=== PATIENT | female | born 1970 | race Caucasian/White ===

== ENCOUNTER → 2017-03-01 | Outpatient (CLI) | payer BC ==
--- NOTE | 2017-03-02 11:41 | MM ---
Reason for exam: screening (asymptomatic). Last mammogram was performed 1 year ago. History: Patient had first child at age 40. Family history of breast cancer in maternal aunt at age 50. Took hormonal contraceptives for 17 years beginning at age 18. Physical Findings: A clinical breast exam by your physician is recommended on an annual basis and results should be correlated with mammographic findings. MG 3D Screening Mammo W/Cad Bilateral CC and MLO view(s) were taken. Prior study comparison: February 29, 2016, bilateral MG 3d screening mammo w/cad. January 04, 2015, bilateral MG screening mammo w CAD. January 01, 2014, bilateral digital screening mammo w/CAD. The breast tissue is heterogeneously dense. This may lower the sensitivity of mammography. ASSESSMENT: Negative, BI-RAD 1 RECOMMENDATION: Routine screening mammogram of both breasts in 1 year.
== END | disposition home or self-care (01) ==
LOC: RADMAMWWP 16:46
PROVIDERS: ATTEND Family Medicine
DX: Z12.31 Encounter for screening mammogram for malignant neoplasm of breast (principal); Z80.3 Family history of malignant neoplasm of breast
CPT/HCPCS: 77063; G0202

== ENCOUNTER → 2017-11-15 | Outpatient (CLI) | payer BC ==
[2017-11-15 09:36] LABS: Basophils % (A) 0 %; Eosinophils # (A) 0.1 k/uL (0-0.7); Eosinophils % (A) 1 %; Lymphocytes # (A) 1.8 k/uL (1.0-4.8); Lymphocytes % (A) 20 %; MCH 30.4 pg (25.0-35.0); MCHC 32.5 g/dL (31.0-37.0); MCV 93.5 fL (80.0-100.0); Mean Platelet Volume 7.2; Monocytes # (A) 0.6 k/uL (0-1.0); Monocytes % (A) 7 %; Neutrophils # (A) 6.1 k/uL (1.3-7.7); Neutrophils % (A) 69 %; Platelet Count 278 k/uL (150-450); RDW 12.1 % (11.5-15.5); WBC 8.8 k/uL (3.8-10.6)
[2017-11-15 09:51] LABS: ALT 28 U/L (9-52); AST 24 U/L (14-36); Albumin 4.4 g/dL (3.5-5.0); Alkaline Phosphatase 65 U/L (38-126); Anion Gap 9 mmol/L; Blood Urea Nitrogen 16 mg/dL (7-17); Calcium 9.5 mg/dL (8.4-10.2); Carbon Dioxide 25 mmol/L (22-30); Chloride 105 mmol/L (98-107); Cholesterol 207 mg/dL (<200); Glucose 102 mg/dL (74-99); HDL Cholesterol 88 mg/dL (40-60); LDL Cholesterol,Calculated 106 mg/dL (0-99); Potassium 4.3 mmol/L (3.5-5.1); Sodium 139 mmol/L (137-145); Total Bilirubin 0.7 mg/dL (0.2-1.3); Total Protein 7.3 g/dL (6.3-8.2); Triglycerides 64 mg/dL (<150)
[2017-11-15 10:07] LABS: T4, Free (Free Thyroxine) 1.03 ng/dL (0.78-2.19)
== END | disposition home or self-care (01) ==
LOC: LABWHC1 08:56
PROVIDERS: ATTEND Family Medicine
DX: E04.1 Nontoxic single thyroid nodule (principal); F34.1 Dysthymic disorder; E78.5 Hyperlipidemia, unspecified
CPT/HCPCS: 36415; 80053; 80061; 82306; 82607; 82626; 83001; 83002; 84439; 84443; 85025

== ENCOUNTER → 2018-04-26 | Outpatient (CLI) | payer BC ==
--- NOTE | 2018-04-30 12:10 | MM ---
Reason for exam: screening (asymptomatic). Last mammogram was performed 1 year and 2 months ago. History: Patient had first child at age 40. Family history of breast cancer in maternal aunt at age 50. Took hormonal contraceptives for 17 years beginning at age 18. Physical Findings: A clinical breast exam by your physician is recommended on an annual basis and results should be correlated with mammographic findings. MG 3D Screening Mammo W/Cad Bilateral CC and MLO view(s) were taken. Prior study comparison: March 01, 2017, bilateral MG 3d screening mammo w/cad. February 29, 2016, bilateral MG 3d screening mammo w/cad. The breast tissue is extremely dense which could obscure a lesion on mammography. No significant changes when compared with prior studies. ASSESSMENT: Benign, BI-RAD 2 RECOMMENDATION: Routine screening mammogram of both breasts in 1 year.
== END | disposition home or self-care (01) ==
LOC: RADMAMWWP 07:16
PROVIDERS: ATTEND Family Medicine
DX: Z12.31 Encounter for screening mammogram for malignant neoplasm of breast (principal)
CPT/HCPCS: 77063; 77067

== ENCOUNTER → 2018-12-19 | Outpatient (CLI) | payer BC ==
[2018-12-19 08:10] LABS: Basophils # (A) 0.1 k/uL (0-0.2); Basophils % (A) 1 %; Eosinophils # (A) 0.1 k/uL (0-0.7); Eosinophils % (A) 1 %; HCT 42.9 % (34.0-46.0); HGB 13.6 gm/dL (11.4-16.0); Lymphocytes # (A) 1.5 k/uL (1.0-4.8); Lymphocytes % (A) 19 %; MCH 30.7 pg (25.0-35.0); MCHC 31.7 g/dL (31.0-37.0); Mean Platelet Volume 6.8; Monocytes # (A) 0.5 k/uL (0-1.0); Monocytes % (A) 7 %; Neutrophils # (A) 5.4 k/uL (1.3-7.7); Neutrophils % (A) 69 %; Platelet Count 296 k/uL (150-450); RBC 4.43 m/uL (3.80-5.40); RDW 12.2 % (11.5-15.5); WBC 7.8 k/uL (3.8-10.6)
[2018-12-19 08:52] LABS: Appearance,Urine Clear (Clear); Bilirubin,Urine Negative (Negative); Blood,Urine Negative (Negative); Color,Urine Yellow; Glucose,Urine (UA) Negative (Negative); Ketones,Urine Negative (Negative); Leukocyte Esterase,Urine Negative (Negative); Nitrite,Urine Negative (Negative); PH, Urine 7.5 (5.0-8.0); Protein,Urine Negative (Negative); Specific Gravity,Urine 1.019 (1.001-1.035); Urobilinogen,Urine <2.0 mg/dL (<2.0)
[2018-12-19 20:12] LABS: Vitamin D 25 Hydroxy 57.3 ng/mL (30.0-100.0)
[2018-12-19 20:47] LABS: Albumin 4.2 g/dL (3.80-4.90); Albumin/Globulin Ratio 1.91 (1.60-3.17); Anion Gap 8.3 mmol/L (4.00-12.00); Calcium 9.3 mg/dL (8.7-10.3); Carbon Dioxide 26.7 mmol/L (21.6-31.8); Globulin 2.2 g/dL (1.6-3.3); LDL Cholesterol,Calculated 104.8 mg/dL (0.0-131.0); Potassium 4.8 mmol/L (3.5-5.5); Total Bilirubin 0.5 mg/dL (0.2-1.2); Total Protein 6.4 g/dL (6.2-8.2); VLDL Calculation 10.2 mg/dL (5.00-40.00)
[2018-12-19 21:16] LABS: Hemoglobin A1C 5.5 % (4.0-6.0)
== END | disposition home or self-care (01) ==
LOC: LABWHC1 07:20
PROVIDERS: ATTEND Family Medicine
DX: Z00.00 Encounter for general adult medical examination without abnormal findings (principal); E78.5 Hyperlipidemia, unspecified; I73.00 Raynaud's syndrome without gangrene; G47.00 Insomnia, unspecified
CPT/HCPCS: 36415; 80053; 80061; 81003; 82306; 82607; 83036; 84443; 85025

== ENCOUNTER → 2019-04-30 | Outpatient (CLI) | payer BC ==
--- NOTE | 2019-05-01 15:09 | MM ---
Reason for exam: screening (asymptomatic). Last mammogram was performed 1 year ago. History: Patient had first child at age 40. Family history of breast cancer in maternal aunt at age 50. Took hormonal contraceptives for 17 years beginning at age 18. Physical Findings: A clinical breast exam by your physician is recommended on an annual basis and results should be correlated with mammographic findings. MG 3D Screening Mammo W/Cad Bilateral CC and MLO view(s) were taken. Prior study comparison: April 26, 2018, bilateral MG 3d screening mammo w/cad. March 01, 2017, bilateral MG 3d screening mammo w/cad. The breast tissue is extremely dense which could obscure a lesion on mammography. No significant changes when compared with prior studies. ASSESSMENT: Benign, BI-RAD 2 RECOMMENDATION: Routine screening mammogram of both breasts in 1 year.
== END | disposition home or self-care (01) ==
LOC: RADMAMWWP 15:17
PROVIDERS: ATTEND Family Medicine
DX: Z12.31 Encounter for screening mammogram for malignant neoplasm of breast (principal)
CPT/HCPCS: 77063; 77067

== ENCOUNTER → 2020-04-20 | Outpatient (CLI) | payer BC ==
[2020-04-20 09:08] LABS: Basophils # (A) 0.1 k/uL (0-0.2); Basophils % (A) 1 %; Eosinophils # (A) 0.1 k/uL (0-0.7); Eosinophils % (A) 1 %; HCT 42.1 % (34.0-46.0); HGB 13.4 gm/dL (11.4-16.0); Lymphocytes # (A) 1.5 k/uL (1.0-4.8); Lymphocytes % (A) 17 %; MCV 97.1 fL (80.0-100.0); Monocytes # (A) 0.5 k/uL (0-1.0); Monocytes % (A) 6 %; Neutrophils # (A) 6.4 k/uL (1.3-7.7); Neutrophils % (A) 74 %; Platelet Count 271 k/uL (150-450); RBC 4.33 m/uL (3.80-5.40); RDW 11.9 % (11.5-15.5); WBC 8.6 k/uL (3.8-10.6)
[2020-04-20 17:10] LABS: African American GFR (CKD) 100.3 (60.0-200.0); Albumin 4.2 g/dL (3.80-4.90); Anion Gap 7.9 mmol/L (4.00-12.00); BUN/Creat Ratio 17.5 Ratio (12.00-20.00); Calcium 9.5 mg/dL (8.7-10.3); Carbon Dioxide 26.1 mmol/L (21.6-31.8); Non-African American GFR(CKD) 86.6 (60.0-200.0); Total Protein 6.5 g/dL (6.2-8.2)
[2020-04-20 17:11] LABS: Albumin/Globulin Ratio 1.83 (1.60-3.17); Chol/HDL Ratio 2.05; Globulin 2.3 g/dL (1.6-3.3); LDL Cholesterol,Calculated 93.6 mg/dL (0.0-131.0); Total Bilirubin 0.9 mg/dL (0.3-1.2); VLDL Calculation 11.4 mg/dL (5.00-40.00)
== END | disposition home or self-care (01) ==
LOC: LABWHC1 07:55
PROVIDERS: ATTEND Family Medicine
DX: I73.00 Raynaud's syndrome without gangrene (principal); E04.1 Nontoxic single thyroid nodule; E78.5 Hyperlipidemia, unspecified; R21 Rash and other nonspecific skin eruption
CPT/HCPCS: 36415; 80053; 80061; 82306; 82607; 84443; 85025

== ENCOUNTER → 2020-04-26 | Outpatient (CLI) | payer BC ==
--- NOTE | 2020-04-27 07:50 | MM ---
Reason for exam: clinical finding. Last mammogram was performed 1 year ago. History: Patient had first child at age 40. Family history of breast cancer in maternal aunt at age 50. Took hormonal contraceptives for 17 years beginning at age 18. Indicated problem(s): lump or thickening in the right breast. Physical Findings: Nurse Summary: 0.5cm nodule in the left breast at 7 o'clock (nurse anisa). MG 3D Diag Mammo W/Cad [facility]ANTA Bilateral CC and MLO view(s) were taken. Prior study comparison: April 30, 2019, bilateral MG 3d screening mammo w/cad. April 26, 2018, bilateral MG 3d screening mammo w/cad. The breast tissue is extremely dense which could obscure a lesion on mammography. Palpable marker 7 o'clock left breast placed by the nurse. These results were verbally communicated with the patient and result sheet given to the patient on 04/26/20. ASSESSMENT: Incomplete: need additional imaging evaluation, BI-RAD 0 RECOMMENDATION: Ultrasound of both breasts. (right at the axillary lump, left at nurse palpated site)
--- NOTE | 2020-04-27 07:52 | USB ---
Reason for exam: additional evaluation requested from abnormal screening. History: Patient had first child at age 40. Family history of breast cancer in maternal aunt at age 50. Took hormonal contraceptives for 17 years beginning at age 18. US Breast Limited BILAT Right limited breast ultrasound including focal area of concern, retroareolar and axilla demonstrates a 1.4 x 0.8 x 0.8cm lymph node at the axilla. Left limited breast ultrasound including focal area of concern, retroareolar and axilla demonstrates a 1.8 x 0.9 x 1.2cm lymph node at the axilla. Benign appearing. Right was palpable to the patient. Also scanned left 3-9 o'clock. No solid or cystic lesion. These results were verbally communicated with the patient and result sheet given to the patient on 04/26/20. ASSESSMENT: Benign, BI-RAD 2 RECOMMENDATION: Routine screening mammogram of both breasts in 1 year. Manage on a clinical basis with regard to any suspicious palpable areas.
== END | disposition home or self-care (01) ==
LOC: RADMAMWWP 14:12
PROVIDERS: ATTEND Family Medicine
DX: R92.8 Other abnormal and inconclusive findings on diagnostic imaging of breast (principal); N63.10 Unspecified lump in the right breast, unspecified quadrant
CPT/HCPCS: 77062; 77066

== ENCOUNTER → 2021-06-09 | Outpatient (CLI) | payer MEDICAID ==
[2021-06-09 07:53] LABS: Basophils # (A) 0.1 k/uL (0-0.2); Basophils % (A) 1 %; Eosinophils # (A) 0.1 k/uL (0-0.7); Eosinophils % (A) 2 %; HCT 42.8 % (34.0-46.0); HGB 14.2 gm/dL (11.4-16.0); Lymphocytes # (A) 1.7 k/uL (1.0-4.8); Lymphocytes % (A) 23 %; MCH 31.7 pg (25.0-35.0); MCHC 33.3 g/dL (31.0-37.0); MCV 95.2 fL (80.0-100.0); Mean Platelet Volume 7.8; Monocytes # (A) 0.5 k/uL (0-1.0); Monocytes % (A) 7 %; Neutrophils % (A) 65 %; Platelet Count 297 k/uL (150-450); RDW 11.6 % (11.5-15.5); WBC 7.7 k/uL (3.8-10.6)
[2021-06-09 08:17] LABS: Appearance,Urine Clear (Clear); Bilirubin,Urine Negative (Negative); Blood,Urine Negative (Negative); Color,Urine Colorless; Glucose,Urine (UA) Negative (Negative); Ketones,Urine Negative (Negative); Leukocyte Esterase,Urine Negative (Negative); Nitrite,Urine Negative (Negative); PH, Urine 6.5 (5.0-8.0); Protein,Urine Negative (Negative); Specific Gravity,Urine 1.005 (1.001-1.035); Urobilinogen,Urine <2.0 mg/dL (<2.0)
[2021-06-09 08:30] LABS: ALT 17 U/L (4-34); AST 29 U/L (14-36); African American GFR (CKD) >90 (>60 ml/min/1.73 sqM); Albumin 4.6 g/dL (3.5-5.0); Albumin/Globulin Ratio 1.5; Alkaline Phosphatase 68 U/L (38-126); Anion Gap 9 mmol/L; Blood Urea Nitrogen 14 mg/dL (7-17); Calcium 9.8 mg/dL (8.4-10.2); Carbon Dioxide 28 mmol/L (22-30); Chloride 99 mmol/L (98-107); Globulin 3.1 g/dL; Glucose 109 mg/dL (74-99); Non-African American GFR(CKD) 82 (>60 ml/min/1.73 sqM); Potassium 4.1 mmol/L (3.5-5.1); Sodium 136 mmol/L (137-145); Total Bilirubin 0.7 mg/dL (0.2-1.3); Total Protein 7.7 g/dL (6.3-8.2)
[2021-06-09 08:34] LABS: T4, Free (Free Thyroxine) 1.34 ng/dL (0.78-2.19)
[2021-06-10 00:38] LABS: Chol/HDL Ratio 2.44 Ratio; LDL Cholesterol,Calculated 127.5 mg/dL (0.0-131.0); VLDL Calculation 12.52 mg/dL (5.00-40.00)
--- NOTE | 2021-06-13 11:28 | MM ---
Reason for exam: screening (asymptomatic). Last mammogram was performed 1 year and 1 month ago. History: Patient had first child at age 40. Family history of breast cancer in maternal aunt at age 50. Took hormonal contraceptives for 17 years beginning at age 18. Physical Findings: A clinical breast exam by your physician is recommended on an annual basis and results should be correlated with mammographic findings. MG 3D Screening Mammo W/Cad Bilateral CC and MLO view(s) were taken. Prior study comparison: April 26, 2020, bilateral MG 3d diag mammo w/cad [facility]. April 30, 2019, bilateral MG 3d screening mammo w/cad. April 26, 2018, bilateral MG 3d screening mammo w/cad. The breast tissue is extremely dense which could obscure a lesion on mammography. There is no discrete abnormality. ASSESSMENT: Negative, BI-RAD 1 RECOMMENDATION: Routine screening mammogram of both breasts in 1 year.
== END | disposition home or self-care (01) ==
LOC: RADMAMWWP 07:07
PROVIDERS: ATTEND Family Medicine
DX: Z12.31 Encounter for screening mammogram for malignant neoplasm of breast (principal); Z80.3 Family history of malignant neoplasm of breast
CPT/HCPCS: 77063; 77067; 80053; 80061; 81003; 82306; 82607; 84439; 84443; 85025

== ENCOUNTER → 2022-06-29 | Outpatient (CLI) | payer MEDICAID ==
--- NOTE | 2022-06-30 08:05 | MM ---
Reason for Exam: Screening (asymptomatic). Last mammogram was performed 1 year(s) and 1 month(s) ago. Patient History: Menarche at age 16. First Full-Term at age 40. Late child-bearing (after 30). Hormonal Contraceptives for 17 years from age 18 until age 39. Maternal aunt had breast cancer, age 50. Risk Values: Yari 5 year model risk: 1.3%. NCI Lifetime model risk: 10.8%. Prior Study Comparison: 04/30/2019 Bilateral Screening Mammogram, [facility]. 04/26/2020 Bilateral Diagnostic Mammogram, [facility]. 06/09/2021 Bilateral Screening Mammogram, [facility]. Tissue Density: The breast tissue is heterogeneously dense. This may lower the sensitivity of mammography. Findings: Analyzed By CAD. There is no suspicious group of microcalcifications or new suspicious mass in either breast. Overall Assessment: Negative, BI-RAD 1 Management: Screening Mammogram of both breasts in 1 year. A clinical breast exam by your physician is recommended on an annual basis and results should be correlated with mammographic findings. [facility] will attempt to contact patient to return for supplemental views and ultrasound if indicated. Electronically signed and approved by: Elia Arrieta DO
== END ==
LOC: RADMAMWWP 06:55
PROVIDERS: ATTEND Family Medicine
DX: Z12.31 Encounter for screening mammogram for malignant neoplasm of breast (principal); Z80.3 Family history of malignant neoplasm of breast
CPT/HCPCS: 77063; 77067

== ENCOUNTER → 2023-05-28 | Outpatient (CLI) | payer MEDICAID ==
[2023-05-28 14:04] LABS: Basophils # (A) 0.08 X 10*3/uL (0.00-0.10); Eosinophils # (A) 0.07 X 10*3/uL (0.04-0.35); Eosinophils % (A) 0.9 %; HCT 43.3 % (37.2-46.3); HGB 14.5 d/dL (12.0-15.0); Lymphocytes # (A) 1.71 X 10*3/uL (0.90-5.00); Lymphocytes % (A) 21.5 %; MCHC 33.5 d/dL (32.0-37.0); MCV 92.7 FL (80.0-97.0); Mean Platelet Volume 10.5 FL (9.5-12.2); NRBC Per 100 WBC 0 X 10*3/uL (0.00-0.01); Neutrophils # (A) 5.29 X 10*3/uL (1.80-7.70); Neutrophils % (A) 66.3 %; Platelet Count 289 X 10*3/uL (140-440); RBC 4.67 X 10*6/uL (4.10-5.20); RDW 11.8 % (11.5-14.5); WBC 7.97 X 10*3/uL (4.50-10.00)
[2023-05-28 14:59] LABS: ALT 19 U/L (8-44); AST 22 U/L (13-35); Albumin 4.9 d/dL (3.8-4.9); Albumin/Globulin Ratio 1.88 Ratio (1.60-3.17); Alkaline Phosphatase 82 U/L (41-126); Blood Urea Nitrogen 16.2 mg/dL (9.0-27.0); Calcium 9.9 mg/dL (8.7-10.3); Carbon Dioxide 24.5 mmol/L (21.6-31.8); Chloride 103 mmol/L (96-109); Chol/HDL Ratio 2.58 Ratio; Globulin 2.6 d/dL (1.6-3.3); Glucose 106 mg/dL (70-110); LDL Cholesterol,Calculated 150.9 mg/dL (0.0-131.0); Potassium 4.3 mmol/L (3.5-5.5); Sodium 140 mmol/L (135-145); T4, Free (Free Thyroxine) 1.27 ng/dL (0.80-1.80); Total Bilirubin 0.4 mg/dL (0.3-1.2); Total Protein 7.5 d/dL (6.2-8.2); VLDL Calculation 18.08 mg/dL (5.00-40.00)
== END | disposition home or self-care (01) ==
LOC: LABWHC1 08:07
PROVIDERS: ATTEND Family Medicine
DX: Z00.00 Encounter for general adult medical examination without abnormal findings (principal); E78.5 Hyperlipidemia, unspecified; E04.1 Nontoxic single thyroid nodule; E53.8 Deficiency of other specified B group vitamins; E55.9 Vitamin D deficiency, unspecified
CPT/HCPCS: 36415; 80053; 80061; 82306; 82607; 83090; 84439; 84443; 85025; 86141

== ENCOUNTER → 2023-07-04 | Outpatient (CLI) | payer MEDICAID ==
--- NOTE | 2023-07-05 08:03 | MM ---
Reason for Exam: Screening (asymptomatic). Last screening mammogram was performed 12 month(s) ago. Patient History: Menarche at age 16. First Full-Term at age 40. Late child-bearing (after 30). Perimenopausal. Hormonal Contraceptives for 17 years from age 18 until age 39. Maternal aunt had breast cancer, age 50. Risk Values: Yari 5 year model risk: 1.4%. NCI Lifetime model risk: 10.6%. Prior Study Comparison: 04/26/2020 Bilateral Diagnostic Mammogram, [facility]. 06/09/2021 Bilateral Screening Mammogram, [facility]. 06/29/2022 Bilateral MG 3D screening mammo w/cad, [facility]. Tissue Density: The breast tissue is heterogeneously dense. This may lower the sensitivity of mammography. Findings: Analyzed By CAD. There is no suspicious group of microcalcifications or new suspicious mass in either breast. Overall Assessment: Negative, BI-RAD 1 Management: Screening Mammogram of both breasts in 1 year. A clinical breast exam by your physician is recommended on an annual basis and results should be correlated with mammographic findings. Note on Yari scores and lifetime risk: 1. A Yari score greater than 3% is considered moderate risk. If this is the case, consider specialist referral to assess eligibility for a risk reducing agent. If overall lifetime risk for the development of breast cancer is 20% or higher, the patient may qualify for future screening with alternating mammogram and breast MRI. Electronically signed and approved by: Andrea Mustafa D.O.
== END | disposition home or self-care (01) ==
LOC: RADMAMWWP 07:52
PROVIDERS: ATTEND Family Medicine
DX: Z12.31 Encounter for screening mammogram for malignant neoplasm of breast (principal); Z80.3 Family history of malignant neoplasm of breast
CPT/HCPCS: 77063; 77067

== ENCOUNTER → 2024-05-21 | Outpatient (CLI) | payer MEDICAID ==
[2024-05-21 15:08] LABS: Basophils # (A) 0.07 X 10*3/uL (0.00-0.10); Eosinophils # (A) 0.09 X 10*3/uL (0.04-0.35); Eosinophils % (A) 1.3 %; HCT 43.1 % (37.2-46.3); HGB 14.1 g/dL (12.0-15.0); Lymphocytes # (A) 1.96 X 10*3/uL (0.90-5.00); Lymphocytes % (A) 27.2 %; MCH 31.8 pg (27.0-32.0); MCHC 32.7 g/dL (32.0-37.0); MCV 97.1 FL (80.0-97.0); Mean Platelet Volume 10.3 FL (9.5-12.2); Monocytes % (A) 11.1 %; NRBC Per 100 WBC 0 X 10*3/uL (0.00-0.01); Neutrophils # (A) 4.26 X 10*3/uL (1.80-7.70); Neutrophils % (A) 59.1 %; Platelet Count 344 X 10*3/uL (140-440); RBC 4.44 X 10*6/uL (4.10-5.20); RDW 12.3 % (11.5-14.5)
[2024-05-21 17:54] LABS: ALT 17 U/L (8-44); AST 21 U/L (13-35); Albumin 4.7 g/dL (3.8-4.9); Albumin/Globulin Ratio 1.62 Ratio (1.60-3.17); Alkaline Phosphatase 88 U/L (41-126); Carbon Dioxide 21.4 mmol/L (21.6-31.8); Chloride 102 mmol/L (96-109); Chol/HDL Ratio 2.79 Ratio; Globulin 2.9 g/dL (1.6-3.3); Glucose 106 mg/dL (70-110); LDL Cholesterol,Calculated 180.8 mg/dL (0.0-131.0); Potassium 4.3 mmol/L (3.5-5.5); Sodium 139 mmol/L (135-145); T4, Free (Free Thyroxine) 1.39 ng/dL (0.80-1.80); Total Bilirubin 0.6 mg/dL (0.3-1.2); Total Protein 7.6 g/dL (6.2-8.2); VLDL Calculation 10.24 mg/dL (5.00-40.00)
== END ==
LOC: LABWHC1 08:15
PROVIDERS: ATTEND Family Medicine
DX: F34.1 Dysthymic disorder (principal); E78.5 Hyperlipidemia, unspecified; I73.00 Raynaud's syndrome without gangrene; E53.8 Deficiency of other specified B group vitamins; E55.9 Vitamin D deficiency, unspecified
CPT/HCPCS: 36415; 80053; 80061; 82306; 82607; 84439; 84443; 85025

== ENCOUNTER → 2024-07-14 | Outpatient (CLI) | payer MEDICAID ==
--- NOTE | 2024-07-14 08:32 | MM ---
Reason for Exam: Screening (asymptomatic). Last mammogram was performed 1 year(s) and 1 month(s) ago. Patient History: Menarche at age 16. First Full-Term at age 40. Late child-bearing (after 30). Perimenopausal. Hormonal Contraceptives for 17 years from age 18 until age 39. Maternal aunt had breast cancer, age 50. Last menstrual period: 04/23/2024 Risk Values: Yari 5 year model risk: 1.4%. NCI Lifetime model risk: 10.4%. Prior Study Comparison: 06/09/2021 Bilateral Screening Mammogram, [facility]. 06/29/2022 Bilateral MG 3D screening mammo w/cad, [facility]. 07/04/2023 Bilateral MG 3D screening mammo w/cad, [facility]. Tissue Density: The breasts are heterogeneously dense, which may obscure small masses. Findings: Analyzed By CAD. The pattern is symmetrical. No significant interval change No suspicious groups of microcalcifications, spiculated or lobular masses, architectural distortion or other secondary signs of malignancy are mammographically apparent. Overall Assessment: Benign, BI-RAD 2 Management: Screening Mammogram of both breasts in 1 year. A negative mammogram report should not preclude additional follow up of suspicious palpable abnormalities. Patient should continue monthly self breast exam. A clinical breast exam by your physician is recommended on an annual basis and results should be correlated with mammographic findings. Note on Yari scores and lifetime risk: 1. A Yari score greater than 3% is considered moderate risk. If this is the case, consider specialist referral to assess eligibility for a risk reducing agent. 2. If overall lifetime risk for the development of breast cancer is 20% or higher, the patient may qualify for future screening with alternating mammogram and breast MRI. [facility], , 07/14/2024 8:30 AM. Electronically signed and approved by: Spike Foley D.O. Radiologis
== END | disposition home or self-care (01) ==
LOC: RADMAMWWP 07:01
PROVIDERS: ATTEND Family Medicine
DX: Z12.31 Encounter for screening mammogram for malignant neoplasm of breast (principal); Z80.3 Family history of malignant neoplasm of breast; R92.333 Mammographic heterogeneous density, bilateral breasts
CPT/HCPCS: 77063; 77067

== ENCOUNTER → 2024-09-17 | Outpatient (CLI) | payer MEDICAID ==
[2024-09-17 11:06] LABS: Basophils # (A) 0.07 X 10*3/uL (0.00-0.10); Basophils % (A) 0.9 %; Eosinophils # (A) 0.06 X 10*3/uL (0.04-0.35); Eosinophils % (A) 0.8 %; HCT 41.7 % (37.2-46.3); Lymphocytes # (A) 1.51 X 10*3/uL (0.90-5.00); MCH 30.9 pg (27.0-32.0); MCHC 33.6 g/dL (32.0-37.0); MCV 92.1 FL (80.0-97.0); Mean Platelet Volume 10.1 FL (9.5-12.2); Monocytes % (A) 10.6 %; NRBC Per 100 WBC 0 X 10*3/uL (0.00-0.01); Neutrophils # (A) 5.08 X 10*3/uL (1.80-7.70); Neutrophils % (A) 67.2 %; Platelet Count 317 X 10*3/uL (140-440); RBC 4.53 X 10*6/uL (4.10-5.20); WBC 7.56 X 10*3/uL (4.50-10.00)
[2024-09-17 16:30] LABS: ALT 30 U/L (8-44); AST 25 U/L (13-35); Albumin 4.6 g/dL (3.8-4.9); Albumin/Globulin Ratio 1.59 Ratio (1.60-3.17); Alkaline Phosphatase 80 U/L (41-126); BUN/Creat Ratio 17.33 Ratio (12.00-20.00); Blood Urea Nitrogen 15.6 mg/dL (9.0-27.0); Calcium 9.8 mg/dL (8.7-10.3); Carbon Dioxide 24.9 mmol/L (21.6-31.8); Chloride 100 mmol/L (96-109); Chol/HDL Ratio 2.32 Ratio; Globulin 2.9 g/dL (1.6-3.3); Glucose 94 mg/dL (70-110); LDL Cholesterol,Calculated 140.5 mg/dL (0.0-131.0); Potassium 4.1 mmol/L (3.5-5.5); Sodium 137 mmol/L (135-145); Total Bilirubin 0.7 mg/dL (0.3-1.2); Total Protein 7.5 g/dL (6.2-8.2); VLDL Calculation 10.48 mg/dL (5.00-40.00)
== END | disposition home or self-care (01) ==
LOC: LABWHC1 08:05
PROVIDERS: ATTEND Family Medicine
DX: E78.5 Hyperlipidemia, unspecified (principal); R73.01 Impaired fasting glucose
CPT/HCPCS: 36415; 80053; 80061; 83036; 84443; 85025

== ENCOUNTER → 2024-12-22 | Outpatient (CLI) | payer MEDICAID ==
--- NOTE | 2024-12-22 13:59 | US ---
EXAMINATION TYPE: US arterial LE single level DATE OF EXAM: 12/22/2024 1:44 PM COMPARISONS: None. 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 History of: Smoker: No Hypertension: No Diabetic: No Hyperlipidemia: Yes TIA/CVA: No Previous Vascular Surgery: No CAD: No AK: No Vascular Ulcers: Right Claudication: No Gangrene: Right FINDINGS: Doppler Waveforms: Right: Triphasic waveform involving the right femoral artery. Monophasic waveforms involving the popl iteal, posterior tibial, dorsalis pedis arteries. Minimal moderate for waveforms involving the digit. Left: Triphasic waveforms involving the left femoral artery. Biphasic waveforms involving the poplite al artery. Monophasic waveforms on the posterior tibial and dorsalis pedis arteries. Minimal monophas ic waveforms involving the digit. Brachial Artery systolic pressure: Right: 122 Left: 125 Posterior Tibial artery systolic pressure: Right: 149 Left: 128 Dorsalis Pedis artery systolic pressure: Right: 133 Left: 142 Toe artery systolic pressure: Right: Unable to obtain. Left: 47 Ankle-Brachial Indices: Right: 1.19 Left: 1.14 Toe Brachial Indices: Right: Unable to obtain. Left: 0.38 (Normal > 0.6; Mild 0.35 - 0.59, Moderate 0.12 - 0.34, Severe <0.12) IMPRESSION: Normal ankle-brachial indices bilaterally with minimal monophasic waveforms in the digits bilaterally with mild left to brachial index. Findings suggest at least mild bilateral peripheral vascular disea se distally. This can be further evaluated with CTA runoff as clinically indicated. [facility], , 12/22/2024 1:56 PM
== END | disposition home or self-care (01) ==
LOC: RADUSWWP 12-16 07:51
PROVIDERS: ATTEND Family Medicine
DX: I73.01 Raynaud's syndrome with gangrene (principal)
CPT/HCPCS: 93922